=== PATIENT | male | born 1980 | race Caucasian/White ===

== ENCOUNTER 2024-01-17 14:42 | Outpatient (CLI) | payer OTHER, SELFPAY | END 2024-01-17 14:43 | disposition home or self-care (01) | LOC: LKVREF 14:43 | PROVIDERS: Visit Provider Family Medicine | DX: R10.32 Left lower quadrant pain (principal) | CPT/HCPCS: 80048 ==

== ENCOUNTER 2025-03-09 09:56 | Outpatient (CLI) | payer OTHER, SELFPAY | END 2025-03-09 09:57 | disposition home or self-care (01) | PROVIDERS: PCP Family Medicine; Visit Provider Family Medicine | DX: Z13.6 Encounter for screening for cardiovascular disorders (principal); Z13.1 Encounter for screening for diabetes mellitus | CPT/HCPCS: 80048; 80061 ==